=== PATIENT | female | born 1990 | race Caucasian/White ===

== ENCOUNTER 2020-12-26 10:59 | Emergency (ER) | payer OTHER ==
[2020-12-26 12:12] LABS: BASOPHIL 0.8 % (0-2); EOSINOPHIL 2.9 % (0-5); HCT 48.4 % (37.0-47.0); HGB 16.2 g/dl (12.5-16.0); LYMPHOCYTE 26.3 % (15-48); MCH 31.1 pg (25.0-31.0); MCHC 33.5 g/dL (32.0-36.0); MCV 92.9 fL (78.0-100.0); MONOCYTE 8.2 % (0-12); MPV 9.9 fL (6.0-9.5); NEUTROPHIL 61.4 % (41-80); NRBC 0; PLT 288 K/uL (150-400); RBC 5.21 M/uL (4.20-5.40); RDW 14.9 % (11.5-14.0); WBC 7.2 K/uL (4.0-10.5)
[2020-12-26 12:12] LABS: BILIRUBIN NEGATIVE (NEGATIVE); BLOOD NEGATIVE Ery/uL (NEGATIVE); CLARITY CLEAR (CLEAR); COLOR YELLOW (YELLOW); GLUCOSE (U) NORMAL (NORMAL); LEUKOCYTES NEGATIVE Leu/uL (NEGATIVE); NITRITE NEGATIVE (NEGATIVE); PROTEIN NEGATIVE (NEGATIVE); SPECIFIC GRAVITY 1.025 (1.001-1.030)
[2020-12-26 12:33] LABS: ALBUMIN 3.7 g/dL (3.4-5.0); BILIRUBIN - TOTAL 0.5 mg/dL (0.2-1.0); CREATININE 0.6 mg/dL (0.51-0.95); GLOBULIN (CALCULATION) 3.5 g/dL; POTASSIUM 4.1 mmol/L (3.5-5.1); TOTAL PROTEIN 7.2 g/dL (6.4-8.2)
== END 2020-12-26 12:44 | disposition home or self-care (01) ==
LOC: FER 10:59
PROVIDERS: Emergency Medicine
DX: R10.11 Right upper quadrant pain (principal); R11.0 Nausea; R19.7 Diarrhea, unspecified; F17.200 Nicotine dependence, unspecified, uncomplicated; Z90.49 Acquired absence of other specified parts of digestive tract; Z98.890 Other specified postprocedural states; Z53.8 Procedure and treatment not carried out for other reasons
CPT/HCPCS: 36415; 80053; 81003; 82150; 83690; 85025; J1885; J2405; J7120

== ENCOUNTER 2021-02-14 23:05 | Emergency (ER) | payer OTHER ==
[2021-02-15 02:01] LABS: BASOPHIL 0.6 % (0-2); HCT 45.6 % (37.0-47.0); HGB 15.3 g/dl (12.5-16.0); LYMPHOCYTE 32.8 % (15-48); MCH 30.8 pg (25.0-31.0); MCHC 33.6 g/dL (32.0-36.0); MCV 91.8 fL (78.0-100.0); MPV 9.9 fL (6.0-9.5); NEUTROPHIL 55.3 % (41-80); NRBC 0; PLT 254 K/uL (150-400); RBC 4.97 M/uL (4.20-5.40); RDW 13.2 % (11.5-14.0)
[2021-02-15 02:23] LABS: ALBUMIN 3.6 g/dL (3.4-5.0); BILIRUBIN - TOTAL 0.3 mg/dL (0.2-1.0); CREATININE 0.7 mg/dL (0.51-0.95); GLOBULIN (CALCULATION) 3.2 g/dL; POTASSIUM 3.3 mmol/L (3.5-5.1); TOTAL PROTEIN 6.8 g/dL (6.4-8.2)
[2021-02-15 03:06] LABS: BILIRUBIN NEGATIVE (NEGATIVE); BLOOD 2+ Ery/uL (NEGATIVE); CLARITY CLEAR (CLEAR); COLOR YELLOW (YELLOW); GLUCOSE (U) NORMAL (NORMAL); LEUKOCYTES NEGATIVE Leu/uL (NEGATIVE); NITRITE NEGATIVE (NEGATIVE); PROTEIN NEGATIVE (NEGATIVE); SPECIFIC GRAVITY >=1.030 (1.001-1.030); UROBILINOGEN 0.2 mg/dL (0.2-1.0)
[2021-02-15 03:11] LABS: BACTERIA 1+; URINARY RBC RARE
[2021-02-15 03:12] LABS: AMORPHOUS URATES CRYSTALS TRACE; MUCOUS MODERATE
[2021-02-15] MEDS ORDERED: NORCO 5-325 TA1 EACH PO (06:23)
[2021-02-15] MEDS ORDERED: IBUPROFEN800 MG PO (06:23)
== END 2021-02-15 06:38 | disposition home or self-care (01) ==
LOC: FER 23:05
PROVIDERS: Emergency Medicine Emergency Medical Services
DX: R10.2 Pelvic and perineal pain (principal); F17.200 Nicotine dependence, unspecified, uncomplicated
CPT/HCPCS: 36415; 80053; 81001; 85025; J1885; J2270; J2405; J7030; Q9967